=== PATIENT | female | born 1965 | race American Indian/Alaskan Native ===

== ENCOUNTER 2017-02-25 13:20 | Emergency (ER) | payer SELFPAY ==
[2017-02-25 14:26] LABS: Eosinophils % (Auto) 3.7 % (0.0-4.3); Mean Corpuscular HGB Conc 30 % (30-34); Mean Corpuscular Volume 76 fl (79-97); Platelet Count 247 K/mm3 (140-440); Red Blood Count 4.74 M/mm3 (3.65-5.03); White Blood Count 5.3 K/mm3 (4.5-11.0)
[2017-02-25 14:31] LABS: Hematocrit 35.9 % (30.3-42.9); Hemoglobin 10.9 gm/dl (10.1-14.3)
[2017-02-25 14:32] LABS: Mean Corpuscular Hemoglobin 23 pg (28-32); Red Cell Distribution Width 20.1 % (13.2-15.2)
[2017-02-25 14:34] LABS: Anion Gap 20 mmol/L; BUN/Creatinine Ratio 15.71; Blood Urea Nitrogen 11 mg/dL (7-17); Calcium 9.2 mg/dL (8.4-10.2); Carbon Dioxide 22 mmol/L (22-30); Chloride 103.3 mmol/L (98-107); Glucose 148 mg/dL (65-100); Potassium 3.9 mmol/L (3.6-5.0); Sodium 141 mmol/L (137-145)
--- NOTE | 2017-02-25 14:36 | Emergency Department Report ---
ED Chest Pain HPI - General Chief Complaint: Chest Pain Stated Complaint: CHEST PAIN Time Seen by Provider: 02/25/17 14:28 Source: EMS Mode of arrival: Stretcher Limitations: No Limitations - History of Present Illness Initial Comments: Patient is 51 years old female history of high blood pressure diabetes came by EMS with chief complaint of chest pain and left-sided started this morning heaviness shortness of breath and radiated to her back, patient denied any fever or cough nausea or vomiting. Patient initial blood pressure was 220/120 received nitroglycerin that did help with the blood pressure and the pain at the same time. Patient stated that she is out of her blood pressure medicine and diabetes medicine for the last 3 months for financial reasons. MD Complaint: chest pain -: This morning Onset: during rest Pain Location: left chest Pain Radiation: back Severity scale (0 -10): 7 Quality: heaviness, pressure, squeezing Consistency: constant - Related Data Home Medications Medication Instructions Recorded Confirmed Last Taken QUEtiapine [SEROquel] 300 mg PO QHS 06/11/15 03/30/16 03/30/16 FLUoxetine HCL [FLUoxetine] 40 mg PO QAM 07/04/15 03/30/16 03/30/16 Losartan [Cozaar] 50 mg PO QDAY 03/31/16 03/31/16 Unknown Previous Rx's Medication Instructions Recorded Last Taken Type Hydrochlorothiazide [HCTZ] 25 mg PO QDAY #30 tablet 07/10/15 03/30/16 Rx Ipratropium/Albuterol Sulfate 1 ampul IH TIDRT PRN #50 ampul.neb 07/10/15 Rx [DUONEB *Not for PRN Use*] Levofloxacin [Levaquin TAB] 750 mg PO Q24H #6 tablet 07/10/15 03/30/16 Rx Prednisone [predniSONE 5 mg (6-Day 5 mg PO .TAPER #1 tab.ds.pk 07/15/15 Rx Pack, 21 Tabs)] metFORMIN [Glucophage] 1,000 mg PO BIDDIAB #60 tablet 07/15/15 03/30/16 Rx ARIPiprazole [Abilify TAB] 5 mg PO DAILY #30 tab 07/19/15 03/30/16 Rx FLUoxetine HCL [PROzac] 40 mg PO QDAY #30 capsule 07/19/15 03/30/16 Rx Levofloxacin [Levaquin TAB] 500 mg PO QDAY #3 tablet 07/19/15 03/30/16 Rx Metoprolol [Lopressor TAB] 25 mg PO BID #60 tablet 07/19/15 03/30/16 Rx traZODone [Desyrel] 100 mg PO QHS #30 tablet 07/19/15 03/30/16 Rx Allergies Allergy/AdvReac Type Severity Reaction Status Date / Time codeine Allergy Itching Verified 07/13/15 17:45 Heart Score - HEART Score History: Moderately suspicious EKG: Non-specific Age: 45-65 Risk factors: > 3 risk factors or hx of atherosclerotic disease Troponin: < normal limit HEART Score: 5 - Critical Actions Critical Actions: 4-6 pts:12-16.6% risk of adverse cardiac event. Should be admitted ED Review of Systems ROS: Stated complaint: CHEST PAIN Other details as noted in HPI Comment: All other systems reviewed and negative Constitutional: denies: chills, fever Respiratory: orthopnea, shortness of breath. denies: cough Cardiovascular: chest pain. denies: palpitations, edema Gastrointestinal: denies: abdominal pain, nausea, vomiting, diarrhea, hematemesis, melena, hematochezia Genitourinary: denies: urgency, dysuria, frequency Neurological: denies: headache, weakness, numbness, paresthesias Psychiatric: denies: depression ED Past Medical Hx - Past Medical History Previous Medical History?: Yes Hx Hypertension: Yes Hx Diabetes: Yes Hx Psychiatric Treatment: Yes (depression) Hx HIV: No - Surgical History Past Surgical History?: Yes Additional Surgical History: gastric bypass, tonsillectomy - Social History Smoking Status: Unknown if ever smoked Substance Use Type: None - Medications Home Medications: Home Medications Medication Instructions Recorded Confirmed Last Taken Type QUEtiapine [SEROquel] 300 mg PO QHS 06/11/15 03/30/16 03/30/16 History FLUoxetine HCL [FLUoxetine] 40 mg PO QAM 07/04/15 03/30/16 03/30/16 History Hydrochlorothiazide [HCTZ] 25 mg PO QDAY #30 tablet 07/10/15 03/30/16 03/30/16 Rx Ipratropium/Albuterol Sulfate 1 ampul IH TIDRT PRN #50 ampul.neb 07/10/1503/30/16 Rx [DUONEB *Not for PRN Use*] Levofloxacin [Levaquin TAB] 750 mg PO Q24H #6 tablet 07/10/15 03/30/16 03/30/16 Rx Prednisone [predniSONE 5 mg (6-Day 5 mg PO .TAPER #1 tab.ds.pk 07/15/1503/30/16 Rx Pack, 21 Tabs)] metFORMIN [Glucophage] 1,000 mg PO BIDDIAB #60 tablet 07/15/15 03/30/16 Rx ARIPiprazole [Abilify TAB] 5 mg PO DAILY #30 tab 07/19/15 03/30/16 03/30/16 Rx FLUoxetine HCL [PROzac] 40 mg PO QDAY #30 capsule 07/19/15 03/30/16 03/30/16 Rx Levofloxacin [Levaquin TAB] 500 mg PO QDAY #3 tablet 07/19/15 03/30/16 03/30/16 Rx Metoprolol [Lopressor TAB] 25 mg PO BID #60 tablet 07/19/15 03/30/16 03/30/16 Rx traZODone [Desyrel] 100 mg PO QHS #30 tablet 07/19/15 03/30/16 03/30/16 Rx Losartan [Cozaar] 50 mg PO QDAY 03/31/16 03/31/16 Unknown History ED Physical Exam - General Limitations: No Limitations General appearance: alert, in no apparent distress - Head Head exam: Present: normocephalic - Eye Eye exam: Present: normal appearance, PERRL, EOMI - ENT ENT exam: Present: normal exam, normal orophraynx, mucous membranes moist - Neck Neck exam: Present: normal inspection, full ROM. Absent: tenderness, meningismus, lymphadenopathy, thyromegaly - Respiratory Respiratory exam: Present: normal lung sounds bilaterally. Absent: respiratory distress, wheezes, rales, rhonchi, chest wall tenderness, accessory muscle use, decreased breath sounds, prolonged expiratory - Cardiovascular Cardiovascular Exam: Present: bradycardia. Absent: systolic murmur, diastolic murmur, rubs, gallop - GI/Abdominal GI/Abdominal exam: Present: soft. Absent: distended, tenderness, guarding, rebound, rigid, diminished bowel sounds, mass, bruit, pulsatile mass, hernia - Extremities Exam Extremities exam: Present: normal inspection. Absent: pedal edema, calf tenderness - Back Exam Back exam: Present: normal inspection. Absent: CVA tenderness (R), CVA tenderness (L) - Neurological Exam Neurological exam: Present: alert, oriented X3, CN II-XII intact, normal gait, reflexes normal. Absent: motor sensory deficit - Skin Skin exam: Present: warm, intact, normal color ED Course Vital Signs 02/25/17 13:24 Temperature 98.9 F Pulse Rate 58 L Respiratory 16 Rate Blood Pressure 179/82 O2 Sat by Pulse 100 Oximetry - Reevaluation(s) Reevaluation #1: 02/25/17 15:42 The patient stated her chest that is much better after the nitroglycerin. Blood pressure is down to 170/86. ED Medical Decision Making - Lab Data Result diagrams: 02/25/17 13:51 02/25/17 13:51 - EKG Data -: EKG Interpreted by Nd EKG shows normal: sinus rhythm Rate: bradycardia - EKG Data Interpretation: no acute changes - Radiology Data Radiology results: report reviewed Chest x-ray is unremarkable for acute abnormalities - Medical Decision Making Ms. Castro presented with typical chest pain left sided pressure was high blood pressure. EKG did not show anything acute her troponin is negative so far patient will need to be admitted to the hospital for chest pain rule out SC. Discussed with Dr. Dick for admission Critical care attestation.: If time is entered above; I have spent that time in minutes in the direct care of this critically ill patient, excluding procedure time. ED Disposition Clinical Impression: Chest pain, Malignant hypertension Disposition: OP ADMIT IP TO THIS HOSP Is pt being admited?: Yes Does the pt Need Aspirin: Yes (aspirin given by EMS) Condition: Stable Instructions: Chest Pain (ED), Hypertension (ED)
--- NOTE | 2017-02-25 15:29 | XRay Report ---
AP CHEST: HISTORY: chest pain AP view of the chest demonstrates a normal mediastinal and cardiac contour with clear lungs and normal bony and soft tissue structures. IMPRESSION: Unremarkable AP chest.
--- NOTE | 2017-02-25 16:16 | History and Physical Report ---
Medications and Allergies Allergies Allergy/AdvReac Type Severity Reaction Status Date / Time codeine Allergy Itching Verified 07/13/15 17:45 Home Medications Medication Instructions Recorded Confirmed Last Taken Type Losartan [Cozaar] 50 mg PO QDAY 03/31/16 02/25/17 Unknown History Hydrochlorothiazide [HCTZ] 12.5 mg PO QDAY 02/25/17 02/25/17 Unknown History Exam - Constitutional Vitals: Temp Pulse Resp BP Pulse Ox 98.4 F 58 L 16 167/79 100 02/25/17 15:57 02/25/17 15:57 02/25/17 15:57 02/25/17 15:57 02/25/17 15:57 Results - Labs CBC & Chem 7: 02/25/17 13:51 02/25/17 13:51 Labs: Abnormal lab results 02/25/17 02/25/17 Range/Units 13:51 13:51 MCV 76 L (79-97) fl MCH 23 L (28-32) pg RDW 20.1 H (13.2-15.2) % Glucose 148 H (65-100) mg/dL
[2017-02-25] MEDS ORDERED: APRESOLINE IV ONE (17:48)
[2017-02-25 21:54] VITALS: BP 152/79
== END 2017-02-25 20:55 | disposition admitted as inpatient to this hospital (09) ==
LOC: ED 13:20
DX: R07.89 Other chest pain (principal); I10 Essential (primary) hypertension; E11.9 Type 2 diabetes mellitus without complications; F32.9 Major depressive disorder, single episode, unspecified; Z90.49 Acquired absence of other specified parts of digestive tract; Z98.84 Bariatric surgery status; Z88.6 Allergy status to analgesic agent
CPT/HCPCS: 36415; 71010; 80048; 84484; 85025; 85379; 93005; 93010; 96374; 99284; J0360

== ENCOUNTER 2019-08-09 17:25 | Emergency (ER) | payer MEDICARE ==
[2019-08-09 18:48] LABS: Basophils # (Auto) 0.1 K/mm3 (0.0-0.1); Basophils % (Auto) 1.4 % (0.0-1.8); Eosinophils # (Auto) 0.1 K/mm3 (0.0-0.4); Eosinophils % (Auto) 2.1 % (0.0-4.3); Hematocrit 40.6 % (30.3-42.9); Hemoglobin 13.1 gm/dl (10.1-14.3); Lymphocytes # (Auto) 2.8 K/mm3 (1.2-5.4); Lymphocytes % (Auto) 47.8 % (13.4-35.0); Mean Corpuscular HGB Conc 32 % (30-34); Mean Corpuscular Volume 83 fl (79-97); Monocytes # (Auto) 0.3 K/mm3 (0.0-0.8); Monocytes % (Auto) 5.6 % (0.0-7.3); Platelet Count 342 K/mm3 (140-440); Red Cell Distribution Width 16.7 % (13.2-15.2)
[2019-08-09 18:53] LABS: BUN/Creatinine Ratio 10; Blood Urea Nitrogen 8 mg/dL (7-17); Calcium 8.8 mg/dL (8.4-10.2); Hemolysis Index 3
[2019-08-09 18:58] LABS: Amphetamine Screen,Urine PRESUMPTIVE NEGATIVE; Bacteria,Urine 4+ /HPF (Negative); Benzodiazepines Screen,Urine PRESUMPTIVE NEGATIVE; Bilirubin,Urine NEG (Negative); Blood,Urine SM (Negative); Cannabinoid Screen,Urine PRESUMPTIVE NEGATIVE; Cocaine Screen,Urine PRESUMPTIVE NEGATIVE; Color,Urine Amber (Yellow); Hyaline Casts,Urine 3 /LPF; Methadone Screen,Urine PRESUMPTIVE NEGATIVE; Mucus,Urine 1+ /HPF; Opiate Screen,Urine PRESUMPTIVE NEGATIVE
[2019-08-09] MEDS ORDERED: LORazepam 2 MG/ML VIAL IV PRN ×2 (19:08)
--- NOTE | 2019-08-09 19:14 | Emergency Department Report ---
<SUZAN POLANCO - Last Filed: 08/09/19 19:09> ED Psych HPI - General Chief Complaint: Psych Stated Complaint: PSYCH ISSUE Time Seen by Provider: 08/09/19 18:58 Source: patient, EMS Mode of arrival: Ambulatory - History of Present Illness Initial Comments: Ms. Castro is a 53 years old female with history of depression and chronic alcohol abuse. Patient presented to the ER with chief complaint of severe depression and suicidal thoughts. Patient does not have a plan. Patient stated that she drinks alcohol daily for the last 3 years. Patient stated that she is having visual hallucination. She stated that she sees stuff on the wall like TV and there is nothing there. Patient denies any history of seizure secondary to alcohol. Patient denied any auditory hallucination. No homicidal ideation. Patient informed to nurses that she is thinking about killing herself but when she remembered that she will be [age] she stated that she is not thinking about killing herself. Patient stated that she was admitted to inpatient psychiatric facility 2 years ago for 1 week for suicidal ideation. MD Complaint: suicidal ideation, feels depressed Associated Psychiatric Symptoms: depression, suicidal ideation, visual hallucinations History of same: Yes Quality: constant Improves With: none Context: recent alcohol abuse Associated Symptoms: denies other symptoms Treatments Prior to Arrival: none If Self Harm: admits thoughts of - Related Data Home Medications Medication Instructions Recorded Confirmed Last Taken Losartan [Cozaar] 50 mg PO QDAY 03/31/16 02/25/17 Unknown hydroCHLOROthiazide [HCTZ] 12.5 mg PO QDAY 02/25/17 02/25/17 Unknown Previous Rx's Medication Instructions Recorded Last Taken Type Losartan/Hydrochlorothiazide 1 each PO DAILY #30 tablet 02/25/17 Unknown Rx [Losartan-Hctz 50-12.5 mg Tab] Pantoprazole [Protonix TAB] 20 mg PO QDAY #30 tablet. 02/25/17 Unknown Rx Allergies Allergy/AdvReac Type Severity Reaction Status Date / Time codeine Allergy Itching Verified 07/13/15 17:45 ED Review of Systems Comment: All other systems reviewed and negative Constitutional: denies: chills, fever Respiratory: denies: cough, shortness of breath, SOB with exertion Cardiovascular: palpitations. denies: chest pain Gastrointestinal: denies: abdominal pain, nausea, vomiting, diarrhea, constipation, hematemesis, melena Musculoskeletal: denies: back pain Neurological: denies: headache, weakness, numbness, paresthesias, confusion Psychiatric: anxiety, depression, visual hallucinations, suicidal thoughts. denies: auditory hallucinations, homicidal thoughts ED Past Medical Hx - Past Medical History Previous Medical History?: Yes Hx Hypertension: Yes Hx Diabetes: Yes Hx Psychiatric Treatment: Yes (depression) Hx HIV: No - Surgical History Past Surgical History?: Yes Additional Surgical History: gastric bypass, tonsillectomy - Social History Smoking Status: Never Smoker Substance Use Type: Alcohol - Medications Home Medications: Home Medications Medication Instructions Recorded Confirmed Last Taken Type Losartan [Cozaar] 50 mg PO QDAY 03/31/16 02/25/17 Unknown History Losartan/Hydrochlorothiazide 1 each PO DAILY #30 tablet 02/25/17 Unknown Rx [Losartan-Hctz 50-12.5 mg Tab] Pantoprazole [Protonix TAB] 20 mg PO QDAY #30 tablet. 02/25/17 Unknown Rx hydroCHLOROthiazide [HCTZ] 12.5 mg PO QDAY 02/25/17 02/25/17 Unknown History ED Physical Exam - General Limitations: No Limitations General appearance: alert, appears intoxicated, anxious - Head Head exam: Present: atraumatic, normocephalic, normal inspection - Eye Eye exam: Present: normal appearance, PERRL - ENT ENT exam: Present: normal exam, normal orophraynx, mucous membranes moist - Neck Neck exam: Present: normal inspection, full ROM. Absent: tenderness, meningismus, lymphadenopathy, thyromegaly - Respiratory Respiratory exam: Present: normal lung sounds bilaterally - Cardiovascular Cardiovascular Exam: Present: tachycardia - GI/Abdominal GI/Abdominal exam: Present: soft, normal bowel sounds. Absent: distended, tenderness, guarding, rebound, rigid, organomegaly, mass, bruit, pulsatile mass, hernia - Extremities Exam Extremities exam: Present: normal inspection, full ROM, normal capillary refill. Absent: tenderness, pedal edema, calf tenderness - Back Exam Back exam: Present: normal inspection, full ROM. Absent: CVA tenderness (R), CVA tenderness (L), muscle spasm, paraspinal tenderness, vertebral tenderness, rash noted - Neurological Exam Neurological exam: Present: alert, oriented X3, CN II-XII intact, normal gait, reflexes normal. Absent: abnormal gait, motor sensory deficit - Psychiatric Psychiatric exam: Present: depressed, agitated, anxious, suicidal ideation. Absent: flat affect, manic, homicidal ideation - Skin Skin exam: Present: warm, intact, normal color ED Medical Decision Making - Lab Data Result diagrams: 08/09/19 18:02 08/09/19 18:02 ED Disposition Clinical Impression: Suicidal ideation, Depression Disposition: [id number]/TX-[id number] PSY HOSP/PSY UNIT Condition: Stable <RODOLFO RAMOS - Last Filed: 08/10/19 16:28> ED Review of Systems ROS: Stated complaint: PSYCH ISSUE Other details as noted in HPI ED Course Vital Signs 08/09/19 08/09/19 08/10/19 17:58 20:09 02:05 Temperature 98.3 F 97.8 F 98.7 F Pulse Rate 109 H 93 H 96 H Respiratory 16 18 18 Rate Blood Pressure 151/93 147/86 152/90 [Left] O2 Sat by Pulse 95 97 97 Oximetry 08/10/19 08:13 Temperature 98.4 F Pulse Rate 103 H Respiratory 20 Rate Blood Pressure 156/86 [Left] O2 Sat by Pulse 98 Oximetry - Reevaluation(s) Reevaluation #1: 08/10/19 16:28 Patient is been accepted to [facility] at this time ED Medical Decision Making - Lab Data Result diagrams: 08/09/19 18:02 08/09/19 18:02 Critical care attestation.: If time is entered above; I have spent that time in minutes in the direct care of this critically ill patient, excluding procedure time. ED Disposition Is pt being admited?: No Does the pt Need Aspirin: No Time of Disposition: 16:28
[2019-08-09] MEDS: LORazepam 2 MG TAB PO PRN ×2 (19:20→21:17)
[2019-08-10] MEDS: LORazepam 2 MG TAB PO PRN (08:14)
[2019-08-10 08:15] VITALS: BP 156/86
[2019-08-10] MEDS ORDERED: levoFLOXacin 500 MG TAB PO SCH (10:00)
== END 2019-08-10 16:39 ==
LOC: ED 17:25
DX: F32.9 Major depressive disorder, single episode, unspecified (principal); R45.851 Suicidal ideations; I10 Essential (primary) hypertension; E11.9 Type 2 diabetes mellitus without complications; Z79.899 Other long term (current) drug therapy; Z88.6 Allergy status to analgesic agent; Z98.890 Other specified postprocedural states
CPT/HCPCS: 36415; 80048; 80307; 80320; 81001; 85025; G0480